=== PATIENT | female | born 1985 | race Caucasian/White ===

== ENCOUNTER 2024-05-27 13:32 | Emergency (ER) | payer OTHER ==
[~2024-05-27] VITALS: Ht 167.6 cm; Wt 65.3 kg
[2024-05-27 13:45] VITALS: BP 129/90; PULSE 78; RESP 16; TEMP 98; O2SAT 100
== END 2024-05-27 14:31 | disposition home or self-care (01) ==
LOC: ER 13:33
DX: S61.012A Laceration without foreign body of left thumb without damage to nail, initial encounter (principal); W26.0XXA Contact with knife, initial encounter; Y93.89 Activity, other specified; Y92.89 Other specified places as the place of occurrence of the external cause; Y99.8 Other external cause status
CPT/HCPCS: 12001; 99282